=== PATIENT | male | born 1965 | race Caucasian/White ===

== ENCOUNTER → 2017-05-11 | Outpatient (CLI) | payer OTHER ==
[~2017-05-11] MED LIST: AMLO2.5T PO; AMLO5TAB4 PO; OXYC-328 PO; TEST5GEL TD
[2017-05-11 14:33] LABS: BASO # 0.1 x10^3/uL (0.0-0.2); BASO % 1 % (0-3); EOS % 1 % (0-3); HEMATOCRIT 41.2 % (39.0-53.0); HEMOGLOBIN 13.7 g/dL (13.0-17.5); LYMPH # 1.9 x10^3/uL (1.0-4.8); LYMPH % 25 % (24-48); MEAN CORPUSCULAR HEMOGLOBIN 31 pg (25-35); MEAN CORPUSCULAR HGB CONC 33 g/dL (31-37); MEAN CORPUSCULAR VOLUME 92 fL (79-100); MONO % 9 % (0-9); NEUT % 65 % (31-73); PLATELET COUNT 291 x10^3/uL (140-400); RED BLOOD COUNT 4.49 x10^6/uL (4.30-5.70); WHITE BLOOD COUNT 7.7 x10^3/uL (4.0-11.0)
--- NOTE | 2017-05-11 15:04 | EKG ---
[facility] [address] [place] [address] Test Date: 2017-05-11 Test Time: 15:07:50 Pat Name: NANCIE CASTILLO Department: Room: Gender: Carpenter/Labor: LEIGH : 1965 Requested By: MICHAEL ELDER Order Number: [id number] Reading MD: Paresh Lilly Measurements Intervals [place] Rate: 65 P: 18 ME: 158 QRS: 17 QRSD: 88 T: 48 QT: 376 QTc: 392 Interpretive Statements SINUS RHYTHM Electronically Signed On 05-14-2017 13:51:56 CDT by Paresh Lilly
[2017-05-11 15:27] LABS: ALBUMIN/GLOBULIN RATIO 1.2 (1.0-1.7); CALCIUM 9.1 mg/dL (8.5-10.1); CREATININE 1.1 mg/dL (0.7-1.3); GFR 70.6; POTASSIUM 3.6 mmol/L (3.5-5.1); TOTAL BILIRUBIN 0.5 mg/dL (0.2-1.0); TOTAL PROTEIN 7.3 g/dL (6.4-8.2)
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
== END | disposition home or self-care (01) ==
LOC: SURGPAT 13:52
PROVIDERS: ATTEND Neurological Surgery
DX: M48.06 Spinal stenosis, lumbar region (principal); M54.17 Radiculopathy, lumbosacral region; I10 Essential (primary) hypertension; V29.9XXD Motorcycle rider (driver) (passenger) injured in unspecified traffic accident, subsequent encounter
CPT/HCPCS: 36415; 80053; 85025; 87641; 93005

== ENCOUNTER 2017-05-18 08:30 | Day surgery (SDC) | payer OTHER ==
[~2017-05-18] VITALS: Ht 193 cm; Wt 101.6 kg
[~2017-05-18 08:30] MED LIST changes: +BUPIVAC MPF-EPI 0.5%-1:200000 30 ML VIAL. ONE; +GELATIN SPONGE SIZE 100. ONE; +IV RINGERS,LACTATED 1000ML 1,000 ML IV SCH; +KETOROLAC 60 MG/2 ML INJ FOR OR. ONE; +LIDOCAINE 1% 1 ML SYRINGE. ID PRN; +ONDANSETRON PF 4 MG/2 ML VIAL. IV PRN; +PROCHLORPERAZINE 10 MG/2 ML VIAL. IV PRN; +THROMBIN TOPICAL 20,000 UNIT SPRAY.SYRN KIT TP ONE; +fentaNYL PF VIAL 100 MCG/2 ML VIAL IV PRN
[2017-05-18] MEDS: BACITRACIN 50,000 UNIT in IV NORMAL SALINE 1000ML BAG 1,000 ML IRR ONE ×2 (10:35→14:02)
[2017-05-18] MEDS ORDERED: DEXAMETHASONE SOD PHOS 20 MG/5 ML VIAL. ONE ×2 (12:23)
[2017-05-18] MEDS ORDERED: PROPOFOL 50 ML IV ONE ×2 (12:23→14:59)
[2017-05-18] MEDS ORDERED: LIDOCAINE 2% PF Vial for OR 5 ML VIAL. ONE (12:23)
[2017-05-18] MEDS ORDERED: DESFLURANE > 120 MINUTES IH ONE ×2 (12:23→15:41)
[2017-05-18] MEDS ORDERED: PROPOFOL 20 ML IV ONE (12:23)
[2017-05-18] MEDS ORDERED: fentaNYL PF VIAL 100 MCG/2 ML VIAL ONE ×2 (12:24→16:23)
[2017-05-18] MEDS ORDERED: 0.9 % SODIUM CHLORIDE 50 ML VIAL. IJ ONE (12:24)
[2017-05-18] MEDS ORDERED: REMIFENTANIL 2 MG VIAL. IV ONE (12:24)
[2017-05-18] MEDS ORDERED: MIDAZOLAM HCL/PF 2 MG/2 ML VIAL. ONE (12:24)
[2017-05-18] MEDS ORDERED: SUCCINYLCHOLINE 200 MG/10 ML VIAL. ONE (12:24)
[2017-05-18] MEDS ORDERED: ePHEDrine PF IN SALINE 50 MG/5 ML DISP.SYRIN IV ONE (13:25)
[2017-05-18] MEDS ORDERED: GLYCOPYRROLATE 1 MG/5 ML VIAL. ONE (13:25)
[2017-05-18] MEDS ORDERED: PHENYLEPHRINE in 0.9% NACL PF 1 MG/10 ML DISP.SYRIN. IV ONE (14:30)
--- NOTE | 2017-05-18 16:16 | DISCH ---
DISCHARGE INSTRUCTIONS Condition on Discharge Condition on Discharge: Stable Activity After Discharge Activity Instructions for Disc: Avoid exertion, Avoid high altitudes Other activity instructions: no driving for a week Bathing Instructions: Shower-keep dressing dry Lifting Instructions after Dis: No heavy lifting, No pulling or pushing, Do not lift >10 pounds Diet after Discharge Additional Diet Restrictions: resume home diet Wound Incision Care Wound/Incision Care: Ice to area for comfort Other wound/incision instructi: remove dressing in 48 hrs if dry then may shower- no soaking, leave steri Contacting the after DC Call your doctor for: Concerns you may have Follow-Up Follow up with: Dr. Elder's nurse in 2 weeks [phone] MICHAEL ELDER MD May 18, 2017 16:16
[2017-05-18] MEDS ORDERED: CYCL10TA2 PO (16:18)
[2017-05-18] MEDS ORDERED: DOCU-109 PO (16:18)
[2017-05-18] MEDS: fentaNYL PF VIAL 100 MCG/2 ML VIAL IV PRN ×2 (16:27→16:37)
--- NOTE | 2017-05-18 16:51 | OP ---
DATE OF SURGERY: 05/18/2017 DATE OF SERVICE: 05/18/2017 PREOPERATIVE DIAGNOSES: Recurrent herniated disk, L5-S1 right with right lumbar radiculopathy. POSTOPERATIVE DIAGNOSIS: Recurrent herniated disk, L5-S1 with right lumbar radiculopathy. OPERATION PERFORMED: Hemilaminotomy and microdiskectomy L5-S1, right. The operation was done with EMG monitoring, fluoroscopy, microscopic dissection. AUTOMATIC PROFILE SANDER OPERATOR: FELICIA Esteban, assisted with the surgery, assisted with the exposure, the microdecompression as well as the closure. This is a reoperation. OPERATIVE INDICATIONS: The patient is a very pleasant 52-year-old who in the past has undergone surgery as recently as 2008, which was the second lumbar microsurgery at L5-S1 and he did well from that surgery. He then acutely deteriorated and on imaging studies, he was seen to have recurrent disk bulging and posterior displacement of the nerve at L5-S1 on the right. My recommendation was that he undergo lumbar microsurgery. He eventually elected to go ahead with surgery. He understood the risks, technique and understood that after two surgeries there was the possibility that he, even with an excellent decompression ____, he may not significantly improve. He understood that in the future fusion might be a possibility. He understood well the rationale for surgery, the risks involved and wished to go ahead. DESCRIPTION OF PROCEDURE: Following general endotracheal anesthesia, the patient was positioned prone on the Kiel frame. The lumbar region was then prepped and draped in standard fashion. ORI hose and AV impulse boots were applied for DVT prophylaxis. A microscope was draped. Fluoroscopy was draped and brought into field. Monitoring was established. Ancef 2 grams was given less than 1 hour prior to initiation of surgery. Using fluoroscopic guidance, a portion of his root his previous incision was reopened and also slightly further superiorly and then most of the work of his previous surgeries appeared to be at disk level and inferior to this. I dissected down through the skin and subcutaneous tissue and reflected the paraspinal muscles and placed a [place] micro disk retractor and visualized the region of the disk. I used a high speed air drill and the microscope and using microscopic technique. I enlarged his previous hemilaminotomy and then worked laterally over the region of the disk and gradually worked down to expose the edges of his previous partial foraminotomy, which I enlarged further and then superiorly above the disk space. I trimmed the bone like to the lateral edge of the dura and then at the level of disk takeoff of the S1 root. I gently worked through scarring and freed up the root. I gently retracted it medially inferior to the disk space. The disk bone edge was posteriorly bulged and calcified and I protected the nerve then drilled this calcified lip away. I entered in the disk space and began to perform a diskectomy. The disk was bulging slightly, but as I worked and began to remove disk fragments, the region suddenly became very well decompressed and the root gained a significant amount of mobility. I removed a significant quality of disk and then I worked laterally and removed some disk laterally from within the foramen. I did work superiorly until I could palpate the edge the path of the L5 root and I gently used the [place] to follow along this path laterally to the region of the disk and I assured myself that the root was not under any compression laterally. There was some facet and calcified ligament, which was rocking back towards the region of the L5 root just after its takeoff. I trimmed all of this material away. At this point, then the S1 root was quite free. The diskectomy had been performed and there was an excellent decompression at this level. I could visualized the root well. Superior to this, I felt that there was an excellent decompression. I irrigated copiously with antibiotic solution. Hemostasis was excellent. I did use bipolar cautery and bone wax where necessary. I irrigated copiously and then I closed the wound in layers with absorbable suture, skin was closed with 4-0 subcuticular stitch. The monitoring did improve with decompression. I was quite pleased with the surgery. MICHAEL ELDER MD DR: AZAEL/kristi JOB#: [id number] / [id number]
[2017-05-18] MEDS ORDERED: oxyCODONE/APAP 10/325 1 TAB TABLET PO ONE (17:00)
[2017-05-18 17:25] VITALS: BP 137/74
== END 2017-05-18 17:54 | disposition home or self-care (01) ==
LOC: SURG 08:30
PROVIDERS: ATTEND Neurological Surgery
DX: M51.17 Intervertebral disc disorders with radiculopathy, lumbosacral region (principal); I10 Essential (primary) hypertension; Z86.69 Personal history of other diseases of the nervous system and sense organs; Z87.39 Personal history of other diseases of the musculoskeletal system and connective tissue; Z88.6 Allergy status to analgesic agent
CPT/HCPCS: 63030; 76000; J0330; J0690; J0780; J1100; J1885; J2250; J2370; J2704; J3010; J3490; J7030; J7120; J2001